=== PATIENT | female | born 1970 | race African-American/Black ===

== ENCOUNTER 2016-08-23 23:50 | Inpatient (IN) | payer OTHER ==
--- NOTE | ~2016-08-23 | HP ---
History And Physical [place] [id number] [facility] [place]. [address] NAME: VIVIAN CABA : 66 STATUS : ADM IN [facility]#: [id number] AGE: 46 ADM/REG DATE : 08/24/16 MR#: [id number] REPORT SERV DATE: 08/24/16 DICTATED BY: HIRA MILLER DATE: 08/24/16 REPORT STATUS : Draft TRANSCRIBED BY: RAISSA DATE: 08/24/16 DATE OF ADMISSION: 08/24/2016 The patient is a 46-year-old female, who presented to [facility] emergency room complaining of pain in her groin area and the lower abdomen, she said approximately for seven days. She said that a week ago, she went to [facility] emergency room when they gave her antibiotics but she developed itching from this antibiotics, so she could not use antibiotics. She is complaining of the lower abdominal pain. She denies any fever. No rash. No headaches. No chest pain. Her blood sugar was elevated, it was 650 in the emergency room and she was in the emergency room when she was given morphine, Zofran, vancomycin, Zosyn, and Diflucan and then I got a call from the emergency room nurse practitioner to admit this patient. As I dictated above, she does not have any chest pain, no shortness of breath. She looks comfortable. Only lower abdominal pain is severe and right leg is hurting. PAST MEDICAL HISTORY: Known for diabetes, hypertension, hyperlipidemia, hypothyroidism, history of coronary artery bypass grafting for coronary artery disease in 2013, per Dr. Styles, morbid obesity, her patient relations representative is Dr. Neumann. She denies any other surgeries. ALLERGIES: SHE IS ALLERGIC TO MORPHINE, CEPHALEXIN, AND CLINDAMYCIN. FAMILY HISTORY: Positive for diabetes and hyper diabetes and coronary artery disease on both parents, mother and father. SOCIAL HISTORY: She denies alcohol. No recreational drug use. No smoking. HOME MEDICATIONS: Include albuterol two puffs inhaled q.4 hours p.r.n.; aspirin 81 mg a day; Lipitor 20 mg a day; Vagisil cream for itching and burning; Benadryl 25 p.r.n.; Nexium 40 mg a day; Neurontin 300 p.o. twice a day; insulin 15 units twice a day, Lantus and NovoLog 70/30, 20 units before meals; lisinopril 10 mg a day; Depo-Provera 1 mL intramuscularly every 3 months; Robaxin 500 mg b.i.d.; metoprolol 50 mg a day; Remeron 15 mg at bedtime; Percocet 10/325, three times p.r.n.; Ranexa 500 mg p.o. b.i.d.; and Brilinta 90 mg p.o. twice a day. REVIEW OF SYSTEMS: All 14-point review of systems done and negative except what is stated in the history of present illness. PHYSICAL EXAMINATION: GENERAL: Obese female, not in acute distress, resting quietly. VITAL SIGNS: Blood pressure 112/69, temperature 97.8, heart rate was in 100s, respiratory rate 18, and oxygen saturation 95 on room air. HEENT: Head atraumatic, normocephalic. Conjunctivae clear. Pupils are equal and reactive to light and accommodation. Extraocular muscles are intact. History And Physical [address] [address] NAME: VIVIAN CABA : 66 STATUS : ADM IN [facility]#: [id number] AGE: 46 ADM/REG DATE : 08/24/16 MR#: [id number] REPORT SERV DATE: 08/24/16 DICTATED BY: HIRA MILLER DATE: 08/24/16 REPORT STATUS : Draft TRANSCRIBED BY: RAISSA DATE: 08/24/16 NECK: Supple. Trachea is midline. LYMPH: No supraclavicular or cervical lymphadenopathy. LUNGS: Clear to auscultation bilaterally. Decreased respiratory effort. CARDIOVASCULAR SYSTEM: Regular rate and rhythm. Point of maximal impulse not displaced. ABDOMEN: Obese, soft. There is tenderness to palpation in the lower abdominal suprapubic area. There is a skin fold under the skin fold, looks like a pannus and there is mild pain on the palpation of that pannus and indurated mass with some fluctuance. There is also foul smelling odor in the area and approximately 1 to 1 cm of skin necrosis noted as well. EXTREMITIES: No clubbing, cyanosis. No edema. SKIN: Normal color, slightly decreased turgor. LABORATORY RESULTS: Procalcitonin 0.55, sodium 134, potassium 3.8, chloride 97, carbon dioxide 20, BUN 15, creatinine 1.16, blood sugar 637. Troponin less than 0.02. White count 13.7, hemoglobin 11.5, hematocrit 34.7, and platelet count is 258. PT 15.3, INR 1.2. UA showed large amount of blood and trace amount of leukocyte esterase, only 4 white cells and 8 red blood cells. Chest x-ray, stable appearance of the chest with prior CABG and bibasilar scarring. No acute process identified. CT of the abdomen and pelvis without contrast done in the emergency room showed fat stranding in the right groin region and mons pubis on the right with some overlying skin thickening and a few tiny air bubbles in the subcutaneous fat. Findings likely represent cellulitis. No organized collection abscess seen in the area image with process appearing to extend below the area imaged. No intraperitoneal extension demonstrated cholelithiasis without CT evidence of acute cholecystitis. Atherosclerotic vascular disease as described. The patient is status post median sternotomy. Lactic acid level was 1.5. EKG showed mild sinus tachycardia with a heart rate of 101, inferior infarction of undetermined age, possible anterior infarction of undetermined age. ASSESSMENT AND PLAN: This is a 46-year-old female with a past medical history of coronary artery disease, diabetes, hypertension, hyperlipidemia, and morbid obesity, presented with 1. Suprapubic abscess and question phlegmon. 2. Diabetes mellitus highly uncontrolled with blood sugar being in 600s. 3. History of coronary artery disease, currently asymptomatic. 4. Morbid obesity. PLAN: 1. For her groin cellulitis, we will do cultures on the wound as well as blood cultures are already done in the emergency room. We will continue vancomycin and Zosyn and we will ask surgeon to see if that abscess could be drained. I will put in a consult for Dr. Peña. 2. Diabetes mellitus highly uncontrolled with blood sugar being in the range of 600s. We will start her on IV fluid hydration. She already received IV fluid bolus. We will monitor her blood sugars. We will put her on insulin drip and also we will ask pharmacy to clarify her home medications and insulins. She will need a diabetic education on Friday. 3. History of coronary artery disease, currently asymptomatic. We will check serial troponins. 4. Morbid obesity. History And Physical [address] [place]. [address] NAME: VIVIAN CABA : 66 STATUS : ADM IN [facility]#: [id number] AGE: 46 ADM/REG DATE : 08/24/16 MR#: [id number] REPORT SERV DATE: 08/24/16 DICTATED BY: HIRA MILLER DATE: 08/24/16 REPORT STATUS : Draft TRANSCRIBED BY: MODL DATE: 08/24/16 5. Her leukocytosis is related to her groin abscess. 6. I will follow up on this patient tomorrow morning. MG/RAISSA Hira Miller M.D. / [id number] CC: Vel Soriano M.D.
--- NOTE | ~2016-08-23 | DS ---
Discharge Summary [place] [id number] [place]. [address] NAME: VIVIAN CABA : 66 STATUS : DIS IN PAT#: [id number] AGE: 46 ADM/REG DATE : 08/24/16 MR#: [id number] REPORT SERV DATE: 08/29/16 DICTATED BY: RUTH KAY DATE: 08/28/16 REPORT STATUS : Draft TRANSCRIBED BY: MODL DATE: 08/28/16 ADMISSION DATE: 08/24/2016 DISCHARGE DATE: 08/28/2016 CONSULTING PHYSICIAN: Dr. Moore for Surgery. FINAL DIAGNOSES: 1. Right groin suprapubic abscess in the pannus area and cellulitis, status post I and D. 2. Diabetes, uncontrolled. 3. Newly diagnosed hypothyroidism. 4. Coronary artery disease with history of CABG. 5. Hypertension. 6. Morbid obesity. DIAGNOSTIC EXAMS: Ultrasound of the lower extremities showing no evidence of DVT. Chest x- ray, stable appearance of the chest with prior CABG and bibasilar scarring. No acute process demonstrated. CT of the abdomen and pelvis showing fat stranding in the right groin region and mons pubis on the right with some overlying skin thickening and a few tiny air bubbles in the subcutaneous fat likely representing cellulitis. No organized collection and abscess seen in the image with the process appearing to extend below the area imaged. No intraperitoneal extension. Cholelithiasis without CT evidence of acute cholecystitis, atherosclerotic vascular disease as described, postmedian sternotomy. HOSPITAL COURSE: Please refer to the H and P done by Dr. Singh dated 08/24/2016. Briefly, this is a 46-year-old female, who comes in with suprapubic and groin pain. The patient has a history of diabetes, CAD, hypertension, and has been having lower abdominal pain for about a week. She went to [facility] Emergency Room, given antibiotics, developed itching, so she stopped it. She continued having the abdominal pain without any fever rash, or headache. The patient then went to the emergency room where her blood sugar was found to be 650. She was then admitted by Dr. Singh and readjusted her insulin requirement. The patient's blood sugar was very uncontrolled on admission, but as we adjusted it, it went down to 113 to 143. Meanwhile, we got Surgery involved and they did an I and D of the abscess of the suprapubic pannus. Unfortunately, we only got coag-negative staph. The patient was initially started on broad-spectrum antibiotics, lower down to Unasyn, and she continued to do well. She expressed her wishes to go home today, so once we get Surgery clear the patient, we will be discharging her with the above diagnosis. MEDICATIONS: She will be on the following medications, aspirin 81 mg a day; Lipitor 20 mg at bedtime; Neurontin 300 mg twice a day; NovoLog per sliding scale and 12 units before meals; Synthroid 75 mcg before breakfast; Remeron 15 mg at bedtime; metoprolol 50 mg at bedtime; Nexium 40 mg a day; Ranexa 500 mg twice a day; Brilinta 90 mg twice a day; Valtrex 500 mg at bedtime; Lantus or Levemir 15 units a day, then 30 units at bedtime; ProAir two puffs q.4 hours p.r.n.; Robaxin, Percocet, and Benadryl as needed; Prinivil will be discontinued for now, as the patient has low normal blood pressure; however, this could be restarted once the blood pressure is better, I will leave that to Dr. Capone; Augmentin 875 mg p.o. b.i.d. for one more week. Discharge Summary [address] [address] NAME: VIVIAN CABA : 66 STATUS : DIS IN PAT#: [id number] AGE: 46 ADM/REG DATE : 08/24/16 MR#: [id number] REPORT SERV DATE: 08/29/16 DICTATED BY: RUTH KAY DATE: 08/28/16 REPORT STATUS : Draft TRANSCRIBED BY: RAISSA DATE: 08/28/16 FOLLOWUP: She will follow up with Dr. Capone. She needs to have her TFTs checked in about six weeks and she will follow up with Surgery if they deem necessary. This has been explained to the patient. She agreed and understood the plan. ROSEMARIE/RAISSA Ruth Kay M.D. / [id number] CC: Vel Castillo M.D.
--- NOTE | ~2016-08-23 | CN ---
Consultation Report [facility] [address] [place]. [address] NAME: VIVIAN CABA : 66 STATUS : ADM IN [facility]#: [id number] AGE: 46 ADM/REG DATE : 08/24/16 MR#: [id number] REPORT SERV DATE: 08/24/16 DICTATED BY: ABBE MOORE DATE: 08/24/16 REPORT STATUS : Draft TRANSCRIBED BY: MODL DATE: 08/24/16 SURGERY CONSULT NOTE DATE OF CONSULTATION: 08/24/2016 TIME: 0940 hours. REASON FOR CONSULT: Suprapubic pannus abscess. HISTORY OF PRESENT ILLNESS: This is a 46-year-old female with a history of diabetes, who presents after approximately one-week of itching and irritation to the pannus overlying her suprapubic area. She also describes some brown, foul-smelling drainage. Over the course of this time, the patient was seen at an outside hospital earlier this week, where she was given some antibiotics. She states, this is not improved. She is continuing to have discomfort and drainage, presented to the emergency department here, where she has been in the hospital and IV antibiotics per the primary team. We are being consulted to evaluate her area of infection. Of note, CT scan was performed, which did find some stranding and subcutaneous air and the area of concern. The patient describes this primarily itchy, although it is painful as well. Denies any other complaints at this time. PAST MEDICAL HISTORY: Diabetes, hypertension, hyperlipidemia. PAST SURGICAL HISTORY: Coronary artery bypass and cardiac stenting. MEDICATIONS: The patient's home medications include albuterol, aspirin, Lipitor, Vagisil, Benadryl, Nexium, Neurontin, Lantus, NovoLog, Prinivil, Depo-Provera, Robaxin, Lopressor, Remeron, Percocet, Ranexa, Brilinta. ALLERGIES: NONE. SOCIAL HISTORY: The patient denies any tobacco, alcohol, or illicit drug use. REVIEW OF SYMPTOMS: A comprehensive review of symptoms was performed and is negative other than in the HPI. PHYSICAL EXAMINATION: GENERAL: This is a 46-year-old female, looks her stated age, in no acute distress. VITAL SIGNS: Temperature 97.2, blood pressure 128/69, heart rate 98, respiratory rate 18, O2 saturation 100% on room air. NEURO: The patient is alert and oriented x3. No focal sensory motor deficits. HEENT: The patient is normocephalic. Head is atraumatic. Pupils are equal, round, react to light. Extraocular muscles are intact. NECK: Soft and supple. Trachea is midline. HEART: Regular rate and rhythm. No murmurs, gallops, or rubs. Consultation Report [address] [address] NAME: VIVIAN CABA : 66 STATUS : ADM IN PAT#: [id number] AGE: 46 ADM/REG DATE : 08/24/16 MR#: [id number] REPORT SERV DATE: 08/24/16 DICTATED BY: ABBE MOORE DATE: 08/24/16 REPORT STATUS : Draft TRANSCRIBED BY: RAISSA DATE: 08/24/16 CHEST: Clear to auscultation bilaterally. No rhonchi. No wheezes. ABDOMEN: Soft, nondistended, nontender. Positive bowel sounds. There is an indurated mass with fluctuance evident on the pannus overlying the patient's suprapubic area. There is also foul-smelling odor to the area and there is approximately 1 x 1 cm area of skin necrosis noted as well. LABORATORIES: White count 13.7, hemoglobin 11.5, hematocrit 34.7, platelets 258. Her calcitonin is 0.55. ASSESSMENT AND PLAN: This is a 46-year-old female with suprapubic pannicular abscess. 1. Continue antibiotics started by the primary team. 2. Plan bedside incision and drainage of this abscess with packing to allow to adequately drain. This plan has been discussed with Dr. Moore who agrees with this plan. DICTATED BY: MD MARIAH Obrien/RAISSA Abbe Moore M.D. / [id number] CC: Vel Soriano M.D.
--- NOTE | ~2016-08-23 | OP ---
Record Of Operation [facility] [address] [place]. [address] NAME: VIVIAN CABA : 66 STATUS : ADM IN [facility]#: [id number] AGE: 46 ADM/REG DATE : 08/24/16 MR#: [id number] REPORT SERV DATE: 08/24/16 DICTATED BY: ABBE MOORE DATE: 08/24/16 REPORT STATUS : Draft TRANSCRIBED BY: MODL DATE: 08/24/16 DATE OF PROCEDURE: 08/24/2016 PREPROCEDURE DIAGNOSIS: Abscess over suprapubic pannus. POSTOPERATIVE DIAGNOSIS: Abscess over suprapubic pannus. PROCEDURE: Incision and drainage and debridement of suprapubic abscess. SURGEON: Abbe Moore M.D. RESIDENT: Marco Hernandez MD. ANESTHESIA: Lidocaine. SPECIMENS: Fluid culture. COMPLICATIONS: None. INDICATIONS: This is a 46-year-old female with diabetes, who presents to the hospital with cellulitis and induration around her suprapubic area. This was evaluated and found to have gas on the CT, although it is incompletely visualized. On exam, there was found to be necrotic portion of the skin as well as some fluctuance underneath. She was consented on the risks, benefits, alternatives of incision and drainage and likes to go forward. DESCRIPTION OF PROCEDURE: Procedures were done at bed side. Area was prepped with Hibiclens, after which injected with a lidocaine, after which this was draped with sterile blue towels. An incision was made using 11 blade into the necrotic portion of the tissue, this was productive of clear fluid. This was cultured, after which it was found to be partially necrotic skin approximately 2 cm x 2 cm x 1 cm. This was trimmed away sharply using a knife near to viable skin. The wound was probed and there was found to be no loculations and did not pass any other fluid collections. The wound was dressed with 4 x 4 gauze, and taped. At the end the procedure, one other area of concern was the patient's right labia. This was anesthetized with lidocaine, after which a needle was placed in multiple locations, looking for any other fluid collections or drain. We were unable to find any purulence in doing this. Therefore, we will continue to watch this and keep the patient on antibiotics. The patient tolerated the procedure well. There were no complications. DICTATED BY: MD MARIAH Obrien/RAISSA Abbe Moore M.D. Record Of Operation [address] [address] NAME: VIVIAN CABA : 66 STATUS : ADM IN PAT#: [id number] AGE: 46 ADM/REG DATE : 08/24/16 MR#: [id number] REPORT SERV DATE: 08/24/16 DICTATED BY: ABBE MOORE DATE: 08/24/16 REPORT STATUS : Draft TRANSCRIBED BY: RAISSA DATE: 08/24/16 / [id number] CC: Vel Soriano M.D.
[~2016-08-23 23:50] MED LIST: AMB10 PO; AMOXIL500 MG PO; ASAB PO; ASPIRIN; BEN25 PO; BRILINTA90 MG PO; DEPO-PROVER150 MG/ML IM; DIABETA5 PO; FIORICET PO; HALF81 PO; HUMALOG SC; HUMALOG SQ; ISORDIL20 PO; LANTUS SC; LEVEMFLXPN SC; LIPITOR20 PO; LOP25 PO; LOP50 PO; LYRICA; LYRICA75 PO; Lyrica PO; METHOC500B PO; METOPROLOL; Metoprolol; NEXIUM40 PO; NOVOLOG; NOVOLOG SC; PERCOCET; PERCOCET1 TA4 PO; PLAVIX; PLAVIX PO; PRIN5 PO; PROAIR HFA INH; RAN500 PO; RANEXA1000 MG PO; SYN.05 PO; TUMSROLL PO; VAGISIL VA; VICODINTAB PO
[2016-08-24 03:37] LABS: HEMATOCRIT 34.7 % (36.0-48.0); HEMOGLOBIN 11.5 g/dL (12.0-16.0); MEAN CORPUS HGB CONC 33.1 g/dL (32.0-36.0); MEAN CORPUSCULAR HEMOGLOB 28.7 pg (26.0-34.0); MEAN PLATELET VOLUME 9.8 fL (9.2-13.0); PLATELET COUNT 258 10/3/uL (150-400); RED CELL COUNT 4.01 10/6/uL (4.0-5.6)
[2016-08-24 03:38] LABS: ER CBC TAT 0 Hrs 07 Mins; MEAN CORPUSCULAR VOLUME 86.5 fL (80-100); WHITE BLOOD CELLS 13.7 10/3/uL (4.5-10.5)
[2016-08-24 03:39] LABS: MANUAL DIFF YES %
[2016-08-24 03:47] LABS: INTERNATIONAL NORMAL RATI 1.2 UNITS (-); PARTIAL THROMBO TIME 29.8 SEC (22.5-37.2)
[2016-08-24 03:53] LABS: CHLORIDE, SERUM 97 MMOL/L (96-112); CREATININE 1.16 MG/DL (0.55-1.02); GFR AFRICAN AMERICAN 64 ML/MIN (>=60); GFR NON AFRICAN AMERICAN 56 ML/MIN (>=60); POTASSIUM, SERUM 3.8 MMOL/L (3.5-5.3); SGOT(AST) 4 U/L (5-40); SGPT(ALT) 10 U/L (5-65); SODIUM, SERUM 134 MMOL/L (135-148); TOTAL BILIRUBIN 0.4 MG/DL (0-1.2); TOTAL PROTEIN 8.1 G/DL (6.0-8.5)
[2016-08-24 03:54] LABS: A/G RATIO 0.4 (0.7-1.9); ALBUMIN 2.5 G/DL (3.5-5.0); ALKALINE PHOSPHATASE 160 U/L (45-117); BUN (BLOOD UREA NITROGEN) 15 MG/DL (6-23); CO2 (CARBON DIOXIDE) 20 MMOL/L (24-34); GLOBULIN 5.6 G/DL (2.5-4.1); GLUCOSE, SERUM 637 MG/DL (60-99)
[2016-08-24 03:59] LABS: LACTATE 1.5 MMOL/L (0.3-2.4)
[2016-08-24 04:06] LABS: PROTIME (NOT ORD) 15.3 SEC (12.0-14.5)
[2016-08-24 04:07] LABS: BAND NEUTROPHILS 4 %; ER DIFF TAT 0 Hrs 36 Mins; LYMPHOCYTES 9 %; LYMPHOCYTES ABSOLUTE (CALC) 1.23 10/3/uL (0.67-4.30); MONOCYTES 4 %; MONOCYTES ABSOLUTE (CALC) 0.55 10/3/uL (0.21-1.20); NEUTROPHILS ABSOLUTE (CALC) 11.92 10/3/uL (2.02-8.40); PLATELET ESTIMATE ADQ (ADEQUATE); RBC MORPHOLOGY NORM (NORMAL); SEGMENTED NEUTROPHIL (0) 83 %; TOTAL NUCLEATED CELLS 100; TOXIC GRANULATION 1+
[2016-08-24 04:50] LABS: PROCALCITONIN 0.55 ng/mL (<0.5)
[2016-08-24] MEDS ORDERED: NEUR300 PO ×2 (05:00→12:44)
[2016-08-24] MEDS ORDERED: REM15 PO ×2 (05:01→12:48)
[2016-08-24] MEDS ORDERED: PRIN10 PO ×2 (05:02→12:49)
[2016-08-24] MEDS ORDERED: NOVOPENMIX SC (05:03)
[2016-08-24 05:42] LABS: ASCORBIC ACID (UR NOT ORDER) NEG (NEG); BILIRUBIN, URINE NEGATIVE (NEG); ER URINALYSIS TAT 0 Hrs 00 Mins; KETONE, URINE 20 MG/DL (NEG); LEUKOCYTE ESTERASE(NOT OR TRACE (NEG); NITRITE (URINE) NEG (NEG); WBC (NOT ORDERED) (RFLEX) 4 (0-5)
[2016-08-24 10:31] LABS: TROPONIN I <0.02 NG/ML (<0.05)
[2016-08-24 10:39] LABS: B NATRIURETIC PEPTIDE (BNP) 47.7 PG/ML (< 100.0)
[2016-08-24] MEDS ORDERED: PROAIR HFA INH (12:42)
[2016-08-24] MEDS ORDERED: BEN25 PO (12:43)
[2016-08-24] MEDS ORDERED: ASAB PO (12:43)
[2016-08-24] MEDS ORDERED: LIPITOR20 PO (12:43)
[2016-08-24] MEDS ORDERED: VAGISIL V (12:43)
[2016-08-24] MEDS ORDERED: NEXIUM40 PO (12:43)
[2016-08-24] MEDS ORDERED: NOVOLOG SC (12:45)
[2016-08-24] MEDS ORDERED: LANTUS SC (12:45)
[2016-08-24] MEDS ORDERED: VALTREX5 PO (12:45)
[2016-08-24] MEDS ORDERED: [UNRECOGNIZED DRUG - OTHER] IM (12:46)
[2016-08-24] MEDS ORDERED: METHOC500B PO (12:47)
[2016-08-24] MEDS ORDERED: LOP50 PO (12:47)
[2016-08-24] MEDS ORDERED: PERCOCET 10/3251 TAB PO (12:48)
[2016-08-24] MEDS ORDERED: RAN500 PO (12:48)
[2016-08-24] MEDS ORDERED: IBU800 PO (12:48)
[2016-08-24] MEDS ORDERED: BRILINTA90 MG PO (12:48)
[2016-08-24 21:25] LABS: GLYCOHEMOGLOBIN (HbA1c) 17.4 % (4.7-6.1)
[2016-08-25 09:08] LABS: CHLORIDE, SERUM 113 MMOL/L (96-112); CO2 (CARBON DIOXIDE) 19 MMOL/L (24-34)
[2016-08-25 09:09] LABS: BUN (BLOOD UREA NITROGEN) 7 MG/DL (6-23); CALCIUM, SERUM 7.6 MG/DL (8.5-10.4); CREATININE 0.62 MG/DL (0.55-1.02); GFR AFRICAN AMERICAN 124 ML/MIN (>=60); GFR NON AFRICAN AMERICAN 107 ML/MIN (>=60); GLUCOSE, SERUM 148 MG/DL (60-99); POTASSIUM, SERUM 4.6 MMOL/L (3.5-5.3); SODIUM, SERUM 145 MMOL/L (135-148)
[2016-08-25 15:15] LABS: BASOPHILS 0.2 %; BASOPHILS ABSOLUTE 0.02 10/3/uL (0.0-0.16); EOSINOPHILS 1.6 %; EOSINOPHILS ABSOLUTE 0.18 10/3/uL (0.0-0.53); HEMATOCRIT 33.5 % (36.0-48.0); HEMOGLOBIN 10.9 g/dL (12.0-16.0); IMMATURE GRANULOCYTES 0.5 %; IMMATURE GRANULOCYTES ABSOLUTE 0.05 10/3/uL (0.0-0.11); LYMPHOCYTES 16.5 %; LYMPHOCYTES ABSOLUTE 1.82 10/3/uL (0.67-4.30); MEAN CORPUS HGB CONC 32.5 g/dL (32.0-36.0); MEAN CORPUSCULAR HEMOGLOB 28.4 pg (26.0-34.0); MEAN CORPUSCULAR VOLUME 87.2 fL (80-100); MEAN PLATELET VOLUME 9.8 fL (9.2-13.0); MONOCYTES 5.5 %; NEUTROPHILS 75.7 %; NEUTROPHILS ABSOLUTE 8.33 10/3/uL (2.02-8.40); PLATELET COUNT 258 10/3/uL (150-400); RBC DISTRIBUTION WIDTH 13.1 % (12.0-16.0); RED CELL COUNT 3.84 10/6/uL (4.0-5.6)
[2016-08-25 15:16] LABS: MANUAL DIFF NO %
[2016-08-26 07:08] LABS: BASOPHILS 0.1 %; BASOPHILS ABSOLUTE 0.01 10/3/uL (0.0-0.16); EOSINOPHILS 1.9 %; EOSINOPHILS ABSOLUTE 0.19 10/3/uL (0.0-0.53); HEMOGLOBIN 9.7 g/dL (12.0-16.0); IMMATURE GRANULOCYTES 0.4 %; IMMATURE GRANULOCYTES ABSOLUTE 0.04 10/3/uL (0.0-0.11); LYMPHOCYTES 21.6 %; LYMPHOCYTES ABSOLUTE 2.12 10/3/uL (0.67-4.30); MEAN CORPUS HGB CONC 32.7 g/dL (32.0-36.0); MEAN CORPUSCULAR HEMOGLOB 27.9 pg (26.0-34.0); MEAN CORPUSCULAR VOLUME 85.3 fL (80-100); MEAN PLATELET VOLUME 8.9 fL (9.2-13.0); MONOCYTES 8.1 %; NEUTROPHILS 67.9 %; NEUTROPHILS ABSOLUTE 6.67 10/3/uL (2.02-8.40); PLATELET COUNT 246 10/3/uL (150-400); RBC DISTRIBUTION WIDTH 13.5 % (12.0-16.0); RED CELL COUNT 3.48 10/6/uL (4.0-5.6); WHITE BLOOD CELLS 9.8 10/3/uL (4.5-10.5)
[2016-08-26 07:13] LABS: HEMATOCRIT 29.7 % (36.0-48.0); MANUAL DIFF NO %
[2016-08-26 07:23] LABS: BUN (BLOOD UREA NITROGEN) 6 MG/DL (6-23); CALCIUM, SERUM 7.6 MG/DL (8.5-10.4); CHLORIDE, SERUM 111 MMOL/L (96-112); CREATININE 0.59 MG/DL (0.55-1.02); GFR AFRICAN AMERICAN 126 ML/MIN (>=60); GFR NON AFRICAN AMERICAN 108 ML/MIN (>=60); GLUCOSE, SERUM 136 MG/DL (60-99); SODIUM, SERUM 143 MMOL/L (135-148)
[2016-08-26 07:25] LABS: CO2 (CARBON DIOXIDE) 23 MMOL/L (24-34); POTASSIUM, SERUM 3.6 MMOL/L (3.5-5.3)
[2016-08-27 05:04] LABS: BASOPHILS 0.1 %; BASOPHILS ABSOLUTE 0.01 10/3/uL (0.0-0.16); EOSINOPHILS 1.3 %; EOSINOPHILS ABSOLUTE 0.11 10/3/uL (0.0-0.53); HEMATOCRIT 30.3 % (36.0-48.0); HEMOGLOBIN 9.8 g/dL (12.0-16.0); IMMATURE GRANULOCYTES 0.5 %; IMMATURE GRANULOCYTES ABSOLUTE 0.04 10/3/uL (0.0-0.11); LYMPHOCYTES 22.6 %; LYMPHOCYTES ABSOLUTE 1.85 10/3/uL (0.67-4.30); MEAN CORPUS HGB CONC 32.3 g/dL (32.0-36.0); MEAN CORPUSCULAR HEMOGLOB 27.9 pg (26.0-34.0); MEAN CORPUSCULAR VOLUME 86.3 fL (80-100); MEAN PLATELET VOLUME 9.5 fL (9.2-13.0); MONOCYTES 7.5 %; MONOCYTES ABSOLUTE 0.61 10/3/uL (0.21-1.20); NEUTROPHILS ABSOLUTE 5.55 10/3/uL (2.02-8.40); PLATELET COUNT 269 10/3/uL (150-400); RBC DISTRIBUTION WIDTH 13.7 % (12.0-16.0); RED CELL COUNT 3.51 10/6/uL (4.0-5.6); WHITE BLOOD CELLS 8.2 10/3/uL (4.5-10.5)
[2016-08-27 05:07] LABS: MANUAL DIFF NO %
[2016-08-27 05:20] LABS: BUN (BLOOD UREA NITROGEN) 7 MG/DL (6-23); CHLORIDE, SERUM 114 MMOL/L (96-112); CO2 (CARBON DIOXIDE) 23 MMOL/L (24-34); CREATININE 0.68 MG/DL (0.55-1.02); GFR AFRICAN AMERICAN 120 ML/MIN (>=60); GFR NON AFRICAN AMERICAN 103 ML/MIN (>=60); GLUCOSE, SERUM 133 MG/DL (60-99); POTASSIUM, SERUM 3.6 MMOL/L (3.5-5.3); SODIUM, SERUM 145 MMOL/L (135-148)
[2016-08-28 06:16] LABS: BUN (BLOOD UREA NITROGEN) 6 MG/DL (6-23); CALCIUM, SERUM 7.9 MG/DL (8.5-10.4); CHLORIDE, SERUM 112 MMOL/L (96-112); CO2 (CARBON DIOXIDE) 23 MMOL/L (24-34); CREATININE 0.66 MG/DL (0.55-1.02); GFR AFRICAN AMERICAN 121 ML/MIN (>=60); GFR NON AFRICAN AMERICAN 104 ML/MIN (>=60); GLUCOSE, SERUM 113 MG/DL (60-99); POTASSIUM, SERUM 3.6 MMOL/L (3.5-5.3); SODIUM, SERUM 144 MMOL/L (135-148)
[2016-08-28] MEDS ORDERED: NOVOLOG (09:18)
[2016-08-28] MEDS ORDERED: LEVOTHYROXIN75 MCG PO (09:28)
[2016-08-28] MEDS ORDERED: LEVEMIR ×3 (09:29→09:31)
[2016-08-28] MEDS ORDERED: NOVOLOG SC ×2 (09:35→09:36)
[2016-08-28] MEDS ORDERED: AUG875 PO (09:38)
[2016-11-22] MEDS ORDERED: RANITIDINE300 MG PO (05:53)
[2016-11-22] MEDS ORDERED: LANTUS SC (05:56)
[2016-11-23] MEDS ORDERED: REG5 PO (16:07)
[2016-11-23] MEDS ORDERED: MIRALAX POWDER1 PKT PO (16:09)
[2016-11-23] MEDS ORDERED: ZOFRAN4 PO (16:24)
[2017-01-24] MEDS ORDERED: PRIN10 PO (18:49)
[2017-01-24] MEDS ORDERED: ENDOCET1 TA3 PO (18:50)
[2017-01-24] MEDS ORDERED: LANTUS SC (18:50)
[2017-01-24] MEDS ORDERED: REM15 PO (18:50)
[2017-01-24] MEDS ORDERED: RAN500 PO (18:52)
[2017-01-24] MEDS ORDERED: IBU800 PO (18:53)
[2017-01-24] MEDS ORDERED: LOP50 PO (18:53)
[2017-01-24] MEDS ORDERED: VALTREX5 PO (18:54)
[2017-01-24] MEDS ORDERED: REG5 PO (18:55)
[2017-01-24] MEDS ORDERED: MEDROXYPROGESTERONE IM (18:55)
[2017-01-24] MEDS ORDERED: ZOFRAN4 PO (18:55)
[2017-01-24] MEDS ORDERED: NEXIUM40 PO (18:56)
[2017-01-24] MEDS ORDERED: SYN075 PO (18:56)
[2017-01-24] MEDS ORDERED: BRILINTA90 MG PO (18:56)
[2017-01-24] MEDS ORDERED: ZANTAC300 MG PO (18:56)
[2017-01-24] MEDS ORDERED: LIPITOR20 PO (18:57)
[2017-01-24] MEDS ORDERED: NOVOLOG SC (18:57)
[2017-01-24] MEDS ORDERED: ELIMITE CREAM 560 GM TOP (18:58)
[2017-01-24] MEDS ORDERED: METHOC500B PO (18:59)
[2017-01-24] MEDS ORDERED: ASAB PO (18:59)
[2017-01-24] MEDS ORDERED: PROAIR HFA INH (18:59)
[2017-01-24] MEDS ORDERED: NEUR300 PO (18:59)
[2017-01-24] MEDS ORDERED: VAGISIL V (19:00)
[2017-01-24] MEDS ORDERED: BEN25 PO (19:00)
[2017-01-27] MEDS ORDERED: AUG875 PO (12:48)
[2017-01-27] MEDS ORDERED: NOVOLOG SC (12:50)
== END 2016-08-28 11:57 | disposition home health service (06) | DRG 571 ==
LOC: ER 23:50 → 2SO 08-24 08:56
PROVIDERS: Hospitalist; Physician Assistant
PROC: 0JBC0ZZ Excision of Pelvic Region Subcutaneous Tissue and Fascia, Open Approach (ICD-10-PCS; principal; 2016-08-24)
DX: L02.214 Cutaneous abscess of groin (principal); Z68.41 Body mass index [BMI] 40.0-44.9, adult; E11.65 Type 2 diabetes mellitus with hyperglycemia; I10 Essential (primary) hypertension; L03.314 Cellulitis of groin; I25.10 Atherosclerotic heart disease of native coronary artery without angina pectoris; K80.20 Calculus of gallbladder without cholecystitis without obstruction; E66.01 Morbid (severe) obesity due to excess calories; E78.5 Hyperlipidemia, unspecified; E03.9 Hypothyroidism, unspecified; Z95.1 Presence of aortocoronary bypass graft; Z88.5 Allergy status to narcotic agent; Z88.1 Allergy status to other antibiotic agents; Z83.3 Family history of diabetes mellitus; Z82.49 Family history of ischemic heart disease and other diseases of the circulatory system; Z91.14 Patient's other noncompliance with medication regimen; Z79.4 Long term (current) use of insulin; Z95.5 Presence of coronary angioplasty implant and graft
CPT/HCPCS: 71010; 74176; 80048; 80053; 80202; 81001; 82962; 83036; 83605; 83735; 83880; 84145; 84443; 84484; 84703; 85025; 85610; 85730; 87040; 87070; 87205; 93005; 93970; 96365; 96367; 96375; 99291; A9270-GY; J0295; J1170; J1200; J2405; J2543; J3370

== ENCOUNTER 2016-09-05 18:36 | Inpatient (IN) | payer OTHER ==
--- NOTE | ~2016-09-05 | DS ---
Discharge Summary [place] [id number] [place]. [address] NAME: VIVIAN CABA : 66 STATUS : DIS IN PAT#: [id number] AGE: 46 ADM/REG DATE : 09/05/16 MR#: [id number] REPORT SERV DATE: 09/10/16 DICTATED BY: DATE: REPORT STATUS : Draft TRANSCRIBED BY: MODL DATE: 09/09/16 ADMISSION DATE: 09/05/2016 DISCHARGE DATE: 09/09/2016 DISCHARGE DIAGNOSES: 1. Suprapubic pannicular fold abscess. 2. Diabetes mellitus, type 2 with an A1c of 14.2. 3. Hypertension. 4. Hypothyroidism. 5. Morbidly obese with a body mass index of 45. 6. Hyperlipidemia. 7. Malnutrition. CONSULTING PHYSICIANS: Abbe Moore M.D. DISCHARGE MEDICATIONS: 1. Lipitor 20 mg p.o. at bedtime. 2. Cadexomer iodine to wound q.2 days. 3. Neurontin 300 mg p.o. b.i.d. 4. Levemir 15 units in the morning. 5. Levemir 30 units subcu at bedtime. 6. NovoLog 12 units subcu before meals. 7. NovoLog sliding scale. 8. Synthroid 75 mcg p.o. daily. 9. Remeron 15 mg p.o. at bedtime. 10.Lopressor 50 mg p.o. at bedtime. 11.Nexium 40 mg p.o. daily. 12.Ranexa 500 mg p.o. b.i.d. 13.Valtrex 500 mg p.o. at bedtime. 14.Albuterol MDI two puffs inhalation q.4 hours p.r.n. for shortness of breath. 15.Aspirin 81 mg p.o. daily. 16.Vagisil daily p.r.n. 17.Benadryl 25 mg p.o. daily p.r.n. for itching. 18.Hydroxyprogesterone 150 mg IM q.90 days. 19.Robaxin 500 mg p.o. b.i.d. p.r.n. for muscle spasms. 20.Percocet 10/325 mg tablet, one tablet p.o. t.i.d. p.r.n. for pain. 21.Brilinta 90 mg p.o. b.i.d. 22.Levaquin 750 mg p.o. daily x9 days. IMAGING: Includes a CT of the abdomen and pelvis without contrast which demonstrated an abscess progressively increasing in size from 08/24/2016, there does appear to be a small fistulous opening on the right side which should be evident clinically. Portable chest x-ray, which demonstrated low lung volumes, freezing crowding of the bronchovascular markings, scarring in the right lung base is unchanged from previous imaging. Discharge Summary [address] [address] NAME: VIVIAN CABA : 66 STATUS : DIS IN PAT#: [id number] AGE: 46 ADM/REG DATE : 09/05/16 MR#: [id number] REPORT SERV DATE: 09/10/16 DICTATED BY: DATE: REPORT STATUS : Draft TRANSCRIBED BY: MODL DATE: 09/09/16 PROCEDURES: The patient had a bedside I and D, per Dr. Moore. HOSPITAL COURSE/PROBLEM LIST: 1. Suprapubic pannicular fold abscess. As mentioned above, the patient had a bedside I and D per Dr. Moore. Wound Care was consulted. The patient is getting Erysol Gel to wound base. The wound is packed and covered with gauze, change q.2 days and p.r.n. for saturation. We set up Home Health Care for the patient via case management to continue this at home. The patient will follow up with Dr. Moore in two weeks in his office. It was explained to the patient that if she is not improving or the wound "looks worse" according to her home health nurse that she should call Dr. Moore's office to move up her appointment if needed. 2. Diabetes mellitus type 2. Hemoglobin A1c of 14.2. The patient saw farm equipment maintenance supervisor here in the hospital in her last admission and she was discharged on 08/29/2016. She states that she does not need to talk to a farm equipment maintenance supervisor at this time. However, her blood sugars have been relatively uncontrolled as well as an A1c of 14.2. Dietary changes were discussed at length with the patient considering she does have malnutrition with a pre-albumin of 12.2 and an albumin of 2.1. I discussed eating protein and less simple carbohydrates with the patient. She will follow up with her primary care provider for further management. 3. Hypertension. Last blood pressure is 136/70. I will continue her home medications. 4. Hypothyroidism. I will continue the patient's home Synthroid. 5. Morbid obesity with a body mass index of 45. As mentioned above, I discussed diet at length with the patient. 6. Hyperlipidemia. I will continue the patient's home Lipitor. Again, the patient will follow up with Dr. Moore in two weeks in his office, and Dr. Stew Capone, her primary care physician. CLR/MODL Richy Bell NP / [id number] CC: MD Stew Borrego M.D. William Cockerham, M.D.
--- NOTE | ~2016-09-05 | HP ---
History And Physical [address] [place]. [address] NAME: VIVIAN CABA : 66 STATUS : ADM IN [facility]#: [id number] AGE: 46 ADM/REG DATE : 09/05/16 MR#: [id number] REPORT SERV DATE: 09/06/16 DICTATED BY: VIKKI CELESTE DATE: 09/05/16 REPORT STATUS : Draft TRANSCRIBED BY: RAISSA DATE: 09/05/16 DATE OF ADMISSION: 09/05/2016 CHIEF COMPLAINT: Right suprapubic pannus abscess with cellulitis, getting progressively worse over the last two to three days. HISTORY OF PRESENT ILLNESS: This is a very pleasant 46-year-old female who recently had been admitted to [facility] for suprapubic pannus abscess with cellulitis overlying her suprapubic area with some brown foul smelling discharge. She has been at that time admitted on 08/24/[address] Dr. Moore surgery Service, who did I and D and debridement of suprapubic abscess. She has been discharged home on 08/29/2016 with Home Health and Wound Care and oral antibiotics which she just finished, Augmentin; however, according to the patient and the , for two to three days, apparently she got somewhat more increased drainage from that suprapubic wound area and Home Health found that she has some again foul smelling drainage described as a brown and some induration, pain, and cellulitic changes. It is very important to note that the patient denies any fever. No chest pain or shortness of breath. No PND. No orthopnea. She did not have any nausea, vomiting. No diarrhea or constipation. No other complaints. The patient has been evaluated in the emergency room and after discussion with Dr. Miller, the surgeon covering for Dr. Moore, the patient has been admitted to Hospitalist Service for further evaluation and treatment. PAST MEDICAL HISTORY: Significant for coronary artery disease, status post prior CABG, PTCA, and stent in 2013 and 2014; diabetes type 2, uncontrolled; hypertension; morbidly obese; hypothyroidism; hyperlipidemia; and recent right suprapubic abscess with cellulitis and recent I and D. PAST SURGICAL HISTORY: Includes CABG as well as stents and she had carpal tunnel and recent I and D performed by Dr. Moore for her suprapubic abscess. SOCIAL HISTORY: She is denying tobacco, alcohol, or IV drugs. ALLERGIES: SHE IS ALLERGIC TO MORPHINE, KEFLEX, AND CLINDAMYCIN. MEDICATIONS: Listed as her home medications include ProAir, Augmentin, aspirin, Lipitor, Vagisil cream p.r.n., Benadryl, Nexium, gabapentin, insulin, NovoLog before meals, sliding scale insulin, Levemir 15 units in the morning and 30 at bedtime, levothyroxine as well as Robaxin, Lopressor, Remeron, Percocet, Ranexa, Brilinta, medroxyprogesterone, and Valtrex. REVIEW OF SYSTEMS: A 14-point review of systems has been obtained and pertinent positive has been listed in the history of present illness. Otherwise, negative except those underlying above. PHYSICAL EXAMINATION: VITAL SIGNS: Currently, T-max 99, blood pressure 168/83, heart rate 106, respiratory rate 20, saturating 100% on room air. History And Physical [address] [address] NAME: VIVIAN CABA : 66 STATUS : ADM IN [facility]#: [id number] AGE: 46 ADM/REG DATE : 09/05/16 MR#: [id number] REPORT SERV DATE: 09/06/16 DICTATED BY: VIKKI CELESTE DATE: 09/05/16 REPORT STATUS : Draft TRANSCRIBED BY: RAISSA DATE: 09/05/16 GENERAL: She is a morbidly obese female, in no acute distress. She is alert and oriented x3. She is nonfocal. She follows all her commands appropriately. HEENT: Show pupils equal, round, reactive to light. Extraocular movements intact. No JVD. No lymphadenopathy. No thyromegaly appreciated. CHEST: Shows bilateral air entry. Clear anteroposterior. No wheezes, crackles, or rhonchi appreciated. CARDIOVASCULAR: She is regular rate and rhythm. S1, S2 positive. No S3, no S4. No murmurs, rubs, or gallops appreciated. ABDOMEN: Soft with positive bowel sounds. Nontender. No guarding. No rebound. There is a localized probable abscess over the suprapubic pannus with induration and the cellulitis changes. There is some necrotic portion of the skin with some erythema and ulceration and there is also some drain with foul smelling. EXTREMITIES: No clubbing, cyanosis, or edema. LABORATORY DATA: Labs from today include sodium 145, potassium 3.9, chloride 109, CO2 of 30, BUN 11, creatinine 0.96, glucose is 74, calcium is 8.1. Her total bilirubin is 0.1. Alkaline phosphatase 113. ALT 15, AST 12, lipase is 17. Acetone is negative. Her lactate is 1.2. White count is 6.7, hemoglobin 9.5, hematocrit 30.4, platelets are 565. Her blood cultures currently are pending. Wound cultures are pending as well. ASSESSMENT: 1. This is a 46-year-old female with likely suprapubic pannicular abscess with cellulitis. 2. History of coronary artery disease, status post prior coronary artery bypass graft, status post percutaneous transluminal coronary angioplasty and stent. 3. Diabetes type 2, insulin-dependent, uncontrolled. 4. Hypertension. 5. Hypothyroidism. 6. Morbidly obese. 7. Hyperlipidemia. PLAN: 1. The patient is going to be admitted to Hospitalist Service. We are going to place the patient on broad-spectrum antibiotics with Zosyn and vancomycin. We are going to do a panculture and wound cultures as well. We are going to do a CAT scan of the abdomen and pelvis without contrast and consult Dr. Moore from Surgery Service for further recommendation, and we will keep as well the patient n.p.o. past midnight, pending surgery evaluation. 2. History of coronary artery disease. We are going to continue her home medications. 3. Diabetes type 2, insulin-dependent, uncontrolled. We are going to give her IV fluids. We are going to place her on Levemir. Hold NovoLog before meals while n.p.o. Accu- Cheks q.6 hours. Sliding scale insulin subcutaneously level 2. 4. Hypertension. We will continue her home medications. Provide p.r.n. hydralazine as needed. 5. Hyperlipidemia. We will continue her lipid-lowering agent. 6. Hypothyroidism. We will continue her home medications and check a TSH and a free T4. We are going to provide reasonable pain and nausea control as well as GI and DVT prophylaxis. That has been discussed extensively with the patient. All the questions History And Physical [facility] [address] [place]. [address] NAME: VIVIAN CABA : 66 STATUS : ADM IN PAT#: [id number] AGE: 46 ADM/REG DATE : 09/05/16 MR#: [id number] REPORT SERV DATE: 09/06/16 DICTATED BY: VIKKI CELESTE DATE: 09/05/16 REPORT STATUS : Draft TRANSCRIBED BY: MODL DATE: 09/05/16 have been answered in full. Further workup and recommendation pending above. It is worthwhile to note that the patient is going to be follow up by Dr. Avery Sadler. CF/MODL Vikki Celeste M.D. / [id number] CC: MD Stew Borrego M.D.
[~2016-09-05 18:36] MED LIST changes: +AUG875 PO; +IBU800 PO; +LEVEMIR; +LEVOTHYROXIN75 MCG PO; +NEUR300 PO; +NOVOPENMIX SC; +PERCOCET 10/3251 TAB PO; +PRIN10 PO; +REM15 PO; +VAGISIL V; +VALTREX5 PO; +[UNRECOGNIZED DRUG - OTHER] IM
[2016-09-05 20:05] LABS: BASOPHILS 0.1 %; BASOPHILS ABSOLUTE 0.01 10/3/uL (0.0-0.16); EOSINOPHILS 2.4 %; EOSINOPHILS ABSOLUTE 0.16 10/3/uL (0.0-0.53); ER CBC TAT 0 Hrs 09 Mins; HEMATOCRIT 30.4 % (36.0-48.0); HEMOGLOBIN 9.5 g/dL (12.0-16.0); IMMATURE GRANULOCYTES 0.1 %; IMMATURE GRANULOCYTES ABSOLUTE 0.01 10/3/uL (0.0-0.11); LYMPHOCYTES 30.7 %; LYMPHOCYTES ABSOLUTE 2.05 10/3/uL (0.67-4.30); MEAN CORPUS HGB CONC 31.3 g/dL (32.0-36.0); MEAN CORPUSCULAR HEMOGLOB 27.6 pg (26.0-34.0); MEAN CORPUSCULAR VOLUME 88.4 fL (80-100); MEAN PLATELET VOLUME 8.4 fL (9.2-13.0); NEUTROPHILS 60.7 %; NEUTROPHILS ABSOLUTE 4.05 10/3/uL (2.02-8.40); RBC DISTRIBUTION WIDTH 13.6 % (12.0-16.0); RED CELL COUNT 3.44 10/6/uL (4.0-5.6); WHITE BLOOD CELLS 6.7 10/3/uL (4.5-10.5)
[2016-09-05 20:07] LABS: MANUAL DIFF NO %; PLATELET COUNT 565 10/3/uL (150-400)
[2016-09-05 20:21] LABS: LACTATE 1.2 MMOL/L (0.3-2.4)
[2016-09-05 20:28] LABS: A/G RATIO 0.4 (0.7-1.9); ALBUMIN 2.3 G/DL (3.5-5.0); CALCIUM, SERUM 8.1 MG/DL (8.5-10.4); CHLORIDE, SERUM 109 MMOL/L (96-112); CREATININE 0.96 MG/DL (0.55-1.02); GFR AFRICAN AMERICAN 81 ML/MIN (>=60); GFR NON AFRICAN AMERICAN 70 ML/MIN (>=60); GLOBULIN 5.6 G/DL (2.5-4.1); POTASSIUM, SERUM 3.9 MMOL/L (3.5-5.3); SGOT(AST) 12 U/L (5-40); SGPT(ALT) 15 U/L (5-65); SODIUM, SERUM 145 MMOL/L (135-148); TOTAL BILIRUBIN 0.1 MG/DL (0-1.2); TOTAL PROTEIN 7.9 G/DL (6.0-8.5)
[2016-09-05 20:29] LABS: ALKALINE PHOSPHATASE 113 U/L (45-117); BUN (BLOOD UREA NITROGEN) 11 MG/DL (6-23); CO2 (CARBON DIOXIDE) 30 MMOL/L (24-34); GLUCOSE, SERUM 74 MG/DL (60-99)
[2016-09-06 08:32] LABS: BASOPHILS 0.3 %; BASOPHILS ABSOLUTE 0.02 10/3/uL (0.0-0.16); EOSINOPHILS ABSOLUTE 0.23 10/3/uL (0.0-0.53); HEMOGLOBIN 8.4 g/dL (12.0-16.0); IMMATURE GRANULOCYTES 0.2 %; IMMATURE GRANULOCYTES ABSOLUTE 0.01 10/3/uL (0.0-0.11); LYMPHOCYTES ABSOLUTE 2.48 10/3/uL (0.67-4.30); MEAN CORPUS HGB CONC 31.5 g/dL (32.0-36.0); MEAN CORPUSCULAR HEMOGLOB 27.6 pg (26.0-34.0); MEAN CORPUSCULAR VOLUME 87.8 fL (80-100); MEAN PLATELET VOLUME 8.3 fL (9.2-13.0); MONOCYTES ABSOLUTE 0.46 10/3/uL (0.21-1.20); NEUTROPHILS 44.5 %; NEUTROPHILS ABSOLUTE 2.57 10/3/uL (2.02-8.40); PLATELET COUNT 450 10/3/uL (150-400); RBC DISTRIBUTION WIDTH 13.7 % (12.0-16.0); RED CELL COUNT 3.04 10/6/uL (4.0-5.6); WHITE BLOOD CELLS 5.8 10/3/uL (4.5-10.5)
[2016-09-06 08:34] LABS: HEMATOCRIT 26.7 % (36.0-48.0); MANUAL DIFF NO %
[2016-09-06 08:38] LABS: INTERNATIONAL NORMAL RATI 1.1 UNITS (-); PARTIAL THROMBO TIME 27.2 SEC (22.5-37.2)
[2016-09-06 08:55] LABS: A/G RATIO 0.4 (0.7-1.9); ALBUMIN 2.1 G/DL (3.5-5.0); ALKALINE PHOSPHATASE 94 U/L (45-117); BUN (BLOOD UREA NITROGEN) 10 MG/DL (6-23); CALCIUM, SERUM 7.7 MG/DL (8.5-10.4); CHLORIDE, SERUM 110 MMOL/L (96-112); CO2 (CARBON DIOXIDE) 28 MMOL/L (24-34); CREATININE 0.77 MG/DL (0.55-1.02); FREE T4 1.17 NG/DL (0.76-1.46); GFR AFRICAN AMERICAN 106 ML/MIN (>=60); GFR NON AFRICAN AMERICAN 91 ML/MIN (>=60); GLOBULIN 4.9 G/DL (2.5-4.1); GLUCOSE, SERUM 96 MG/DL (60-99); PHOSPHORUS, SERUM 3.3 MG/DL (2.5-4.5); POTASSIUM, SERUM 3.9 MMOL/L (3.5-5.3); SGOT(AST) 8 U/L (5-40); SGPT(ALT) 12 U/L (5-65); SODIUM, SERUM 146 MMOL/L (135-148); TOTAL BILIRUBIN 0.2 MG/DL (0-1.2)
[2016-09-06 10:09] LABS: PROCALCITONIN <0.05 ng/mL (<0.5)
[2016-09-07 05:38] LABS: BASOPHILS 0.4 %; BASOPHILS ABSOLUTE 0.02 10/3/uL (0.0-0.16); EOSINOPHILS 3.7 %; EOSINOPHILS ABSOLUTE 0.18 10/3/uL (0.0-0.53); HEMATOCRIT 26.1 % (36.0-48.0); HEMOGLOBIN 8.2 g/dL (12.0-16.0); IMMATURE GRANULOCYTES 0.2 %; IMMATURE GRANULOCYTES ABSOLUTE 0.01 10/3/uL (0.0-0.11); LYMPHOCYTES 45.5 %; LYMPHOCYTES ABSOLUTE 2.23 10/3/uL (0.67-4.30); MANUAL DIFF NO %; MEAN CORPUS HGB CONC 31.4 g/dL (32.0-36.0); MEAN CORPUSCULAR HEMOGLOB 28.1 pg (26.0-34.0); MEAN CORPUSCULAR VOLUME 89.4 fL (80-100); MEAN PLATELET VOLUME 8.4 fL (9.2-13.0); MONOCYTES 7.3 %; MONOCYTES ABSOLUTE 0.36 10/3/uL (0.21-1.20); NEUTROPHILS 42.9 %; PLATELET COUNT 444 10/3/uL (150-400); RBC DISTRIBUTION WIDTH 13.8 % (12.0-16.0); RED CELL COUNT 2.92 10/6/uL (4.0-5.6); WHITE BLOOD CELLS 4.9 10/3/uL (4.5-10.5)
[2016-09-07 05:54] LABS: BUN (BLOOD UREA NITROGEN) 10 MG/DL (6-23); CALCIUM, SERUM 7.8 MG/DL (8.5-10.4); CHLORIDE, SERUM 111 MMOL/L (96-112); CO2 (CARBON DIOXIDE) 26 MMOL/L (24-34); CREATININE 0.97 MG/DL (0.55-1.02); GFR AFRICAN AMERICAN 80 ML/MIN (>=60); GFR NON AFRICAN AMERICAN 69 ML/MIN (>=60); GLUCOSE, SERUM 189 MG/DL (60-99); POTASSIUM, SERUM 4.3 MMOL/L (3.5-5.3); PREALBUMIN 12.2 MG/DL (17.0-43.0); SODIUM, SERUM 144 MMOL/L (135-148)
[2016-09-08 05:42] LABS: BASOPHILS 0.3 %; BASOPHILS ABSOLUTE 0.02 10/3/uL (0.0-0.16); EOSINOPHILS 3.4 %; HEMATOCRIT 25.9 % (36.0-48.0); HEMOGLOBIN 8.2 g/dL (12.0-16.0); IMMATURE GRANULOCYTES 0.2 %; IMMATURE GRANULOCYTES ABSOLUTE 0.01 10/3/uL (0.0-0.11); LYMPHOCYTES ABSOLUTE 1.84 10/3/uL (0.67-4.30); MEAN CORPUS HGB CONC 31.7 g/dL (32.0-36.0); MEAN CORPUSCULAR HEMOGLOB 28.1 pg (26.0-34.0); MEAN CORPUSCULAR VOLUME 88.7 fL (80-100); MEAN PLATELET VOLUME 8.4 fL (9.2-13.0); MONOCYTES 8.8 %; MONOCYTES ABSOLUTE 0.52 10/3/uL (0.21-1.20); NEUTROPHILS 56.3 %; NEUTROPHILS ABSOLUTE 3.35 10/3/uL (2.02-8.40); PLATELET COUNT 369 10/3/uL (150-400); RBC DISTRIBUTION WIDTH 13.8 % (12.0-16.0); RED CELL COUNT 2.92 10/6/uL (4.0-5.6); WHITE BLOOD CELLS 5.9 10/3/uL (4.5-10.5)
[2016-09-08 05:49] LABS: BUN (BLOOD UREA NITROGEN) 10 MG/DL (6-23); CALCIUM, SERUM 8.3 MG/DL (8.5-10.4); CHLORIDE, SERUM 109 MMOL/L (96-112); CO2 (CARBON DIOXIDE) 23 MMOL/L (24-34); CREATININE 0.97 MG/DL (0.55-1.02); GFR AFRICAN AMERICAN 80 ML/MIN (>=60); GFR NON AFRICAN AMERICAN 69 ML/MIN (>=60); POTASSIUM, SERUM 4.4 MMOL/L (3.5-5.3); SODIUM, SERUM 141 MMOL/L (135-148)
[2016-09-08 05:51] LABS: GLUCOSE, SERUM 254 MG/DL (60-99)
[2016-09-08 05:55] LABS: MANUAL DIFF NO %
[2016-09-09 06:15] LABS: BASOPHILS 0.3 %; BASOPHILS ABSOLUTE 0.02 10/3/uL (0.0-0.16); EOSINOPHILS ABSOLUTE 0.19 10/3/uL (0.0-0.53); HEMATOCRIT 28.9 % (36.0-48.0); HEMOGLOBIN 8.9 g/dL (12.0-16.0); IMMATURE GRANULOCYTES 0.2 %; IMMATURE GRANULOCYTES ABSOLUTE 0.01 10/3/uL (0.0-0.11); LYMPHOCYTES 27.8 %; LYMPHOCYTES ABSOLUTE 1.76 10/3/uL (0.67-4.30); MANUAL DIFF NO %; MEAN CORPUS HGB CONC 30.8 g/dL (32.0-36.0); MEAN CORPUSCULAR HEMOGLOB 27.4 pg (26.0-34.0); MEAN CORPUSCULAR VOLUME 88.9 fL (80-100); MEAN PLATELET VOLUME 8.4 fL (9.2-13.0); MONOCYTES ABSOLUTE 0.51 10/3/uL (0.21-1.20); NEUTROPHILS 60.7 %; NEUTROPHILS ABSOLUTE 3.85 10/3/uL (2.02-8.40); PLATELET COUNT 394 10/3/uL (150-400); RBC DISTRIBUTION WIDTH 13.8 % (12.0-16.0); RED CELL COUNT 3.25 10/6/uL (4.0-5.6); WHITE BLOOD CELLS 6.3 10/3/uL (4.5-10.5)
[2016-09-09 06:28] LABS: BUN (BLOOD UREA NITROGEN) 13 MG/DL (6-23); CALCIUM, SERUM 8.8 MG/DL (8.5-10.4); CHLORIDE, SERUM 108 MMOL/L (96-112); CO2 (CARBON DIOXIDE) 25 MMOL/L (24-34); CREATININE 1.01 MG/DL (0.55-1.02); GFR AFRICAN AMERICAN 76 ML/MIN (>=60); GFR NON AFRICAN AMERICAN 66 ML/MIN (>=60); GLUCOSE, SERUM 252 MG/DL (60-99); POTASSIUM, SERUM 4.3 MMOL/L (3.5-5.3); SODIUM, SERUM 142 MMOL/L (135-148)
[2016-09-09] MEDS ORDERED: LEVAQUIN750 MG PO (11:55)
[2016-11-22] MEDS ORDERED: RANITIDINE300 MG PO (05:53)
[2016-11-22] MEDS ORDERED: LANTUS SC (05:56)
[2016-11-23] MEDS ORDERED: REG5 PO (16:07)
[2016-11-23] MEDS ORDERED: MIRALAX POWDER1 PKT PO (16:09)
[2016-11-23] MEDS ORDERED: ZOFRAN4 PO (16:24)
[2017-01-24] MEDS ORDERED: PRIN10 PO (18:49)
[2017-01-24] MEDS ORDERED: LANTUS SC (18:50)
[2017-01-24] MEDS ORDERED: ENDOCET1 TA3 PO (18:50)
[2017-01-24] MEDS ORDERED: REM15 PO (18:50)
[2017-01-24] MEDS ORDERED: RAN500 PO (18:52)
[2017-01-24] MEDS ORDERED: LOP50 PO (18:53)
[2017-01-24] MEDS ORDERED: IBU800 PO (18:53)
[2017-01-24] MEDS ORDERED: VALTREX5 PO (18:54)
[2017-01-24] MEDS ORDERED: REG5 PO (18:55)
[2017-01-24] MEDS ORDERED: MEDROXYPROGESTERONE IM (18:55)
[2017-01-24] MEDS ORDERED: ZOFRAN4 PO (18:55)
[2017-01-24] MEDS ORDERED: ZANTAC300 MG PO (18:56)
[2017-01-24] MEDS ORDERED: SYN075 PO (18:56)
[2017-01-24] MEDS ORDERED: BRILINTA90 MG PO (18:56)
[2017-01-24] MEDS ORDERED: NEXIUM40 PO (18:56)
[2017-01-24] MEDS ORDERED: LIPITOR20 PO (18:57)
[2017-01-24] MEDS ORDERED: NOVOLOG SC (18:57)
[2017-01-24] MEDS ORDERED: ELIMITE CREAM 560 GM TOP (18:58)
[2017-01-24] MEDS ORDERED: METHOC500B PO (18:59)
[2017-01-24] MEDS ORDERED: NEUR300 PO (18:59)
[2017-01-24] MEDS ORDERED: PROAIR HFA INH (18:59)
[2017-01-24] MEDS ORDERED: ASAB PO (18:59)
[2017-01-24] MEDS ORDERED: BEN25 PO (19:00)
[2017-01-24] MEDS ORDERED: VAGISIL V (19:00)
[2017-01-27] MEDS ORDERED: AUG875 PO (12:48)
[2017-01-27] MEDS ORDERED: NOVOLOG SC (12:50)
== END 2016-09-09 12:17 | disposition home health service (06) | DRG 603 ==
LOC: ER 18:36 → 5SO 22:24
PROVIDERS: Internal Medicine; Nurse Practitioner; Nurse Practitioner Acute Care
DX: L03.311 Cellulitis of abdominal wall (principal); E46 Unspecified protein-calorie malnutrition; E11.65 Type 2 diabetes mellitus with hyperglycemia; Z68.42 Body mass index [BMI] 45.0-49.9, adult; I10 Essential (primary) hypertension; E03.9 Hypothyroidism, unspecified; E78.5 Hyperlipidemia, unspecified; E66.01 Morbid (severe) obesity due to excess calories; I25.10 Atherosclerotic heart disease of native coronary artery without angina pectoris; Z95.1 Presence of aortocoronary bypass graft; Z95.5 Presence of coronary angioplasty implant and graft; Z79.4 Long term (current) use of insulin; Z79.82 Long term (current) use of aspirin; Z88.5 Allergy status to narcotic agent; Z88.1 Allergy status to other antibiotic agents; Z79.899 Other long term (current) drug therapy; Z91.14 Patient's other noncompliance with medication regimen; R51 Headache
CPT/HCPCS: 71010; 74176; 80048; 80053; 82009; 82962; 83036; 83605; 83690; 83735; 84100; 84134; 84145; 84439; 84443; 85025; 85610; 85730; 87040; 87070; 87077; 87186; 87205; 93005; 96365; 96366; 99284; A9270-GY; J1170; J2543; J3370